=== PATIENT | male | born 1980 | race Caucasian/White ===

== ENCOUNTER 2018-12-10 11:26 | Emergency (ER) | payer BC, OTHER ==
[~2018-12-10] VITALS: Ht 175.3 cm; Wt 100.0 kg
[2018-12-10 11:30] VITALS: BP 148/69; PULSE 68; RESP 20; Ht 175.3 cm; Wt 100.0 kg
--- NOTE | 2018-12-10 12:50 | ERD ---
ER Documentation Chief Complaint Chief Complaint pt is bib self with c/o bilatt swollen eyelids x 2 wks HPI 38yo M presents to ED with complaint of Bilateral eyelid swelling x 2 days with eye redness and watery discharge x 8 days. Pt states to have been working with dust when dust particles got in his eyes 2 weeks ago. Pt began to notice swelling and discharge 8 days ago. Is currently using visine for symptomatic improvement, with no relief in symptoms. Denies blurred or loss of vision. ROS All systems reviewed and are negative except as per history of present illness. Medications Home Meds Active Scripts Cetirizine Hcl* (Cetirizine Hcl*) 5 Mg/5 Ml Solution, 5 ML PO DAILY for allergies, #4 OZ Prov:SHIRA GOMEZ PA-C 12/10/18 Cromolyn Sodium* (Cromolyn Sodium*) 4% - 10 Ml Drops, 1 DROP BOTH EYES QID for allergies, #1 BOTTLE Prov:SHIRA GOMEZ PA-C 12/10/18 Allergies Allergies: Coded Allergies: No Known Allergy (Unverified , 12/10/18) PMhx/Soc Medical and Surgical Hx: pt denies Medical Hx, pt denies Surgical Hx Hx Alcohol Use: No Hx Substance Use: No Hx Tobacco Use: No Smoking Status: Never smoker Physical Exam Vitals Vital Signs Date Temp Pulse Resp B/P (MAP) Pulse Ox O2 O2 Flow FiO2 Time Delivery Rate 12/10/18 97.7 68 20 148/69 98 11:30 (95) Physical Exam Const: No acute distress Head: Atraumatic Eyes: PERRL. EOMI. No visible foreign body with eversion of the eyelids. Visible conjunctival injection with edema of the eyelids but no erythema or warmth. No visible discharge. Scott lamp exam negative for uptake of Fluorescein stain. ENT: Normal External Ears, Nose and Mouth. Neck: Full range of motion. No meningismus. Resp: Clear to auscultation bilaterally Cardio: Regular rate and rhythm, no murmurs Neur: Awake and alert Psych: Normal Mood and Affect Results 24 hrs Current Medications Medications Dose Sig/Antionette Start Time Status Last (Trade) Ordered Route PRN Stop Time Admin Dose Reason Admin Fluorescein 1 strip ONCE ONCE 12/10/18 DC Sodium LEFT EYE 13:00 (Pcwjz-E-Pqee 12/10/18 13:01 p) Fluorescein 1 strip ONCE ONCE 12/10/18 DC Sodium RIGHT EYE 13:00 ([id number]-Mrxi 12/10/18 13:01 p) Tetracaine 1 drop ONCE ONCE 12/10/18 DC HCl BOTH EYES 13:00 (Tetracaine 12/10/18 13:01 0.5% Steri-Unit Luz) Procedures/MDM MDM: Pt presents with injection and c/o discharge from bilat eyes x 8 days. On exam, they have no pain with EOM movement, minor periorbital swelling but no erythema. They deny any changes in vision. Symptoms and PE findings c/w allergic conjunctivitis, provided Rx for Cromolyn Opthalmic drops and Claritin. At this time low suspicion for acute AAC glaucoma, globe injury, corneal abrasion/ulcer, retinal detachment, and foreign body in eye due to unremarkable eye exam. Pt stable for discharge at this time and advised to f/u with PCP in next 1-2 days. ED return precautions discussed. Pt expressed verbal understanding and agreement to treatment plan. All questions addressed and answered. Departure Diagnosis: Primary Impression: Allergic conjunctivitis Laterality: bilateral Qualified Codes: H10.13 - Acute atopic conjunctivitis, bilateral Condition: Stable SHIRA GOMEZ PA-C December 10, 2018 12:50
[2018-12-10] MEDS ORDERED: FLUORESCEIN STRIP LEFT EYE ONE (13:00)
[2018-12-10] MEDS ORDERED: FLUORESCEIN STRIP RIGHT EYE ONE (13:00)
[2018-12-10] MEDS ORDERED: TETRACAINE 0.5% 4 ML OPH BOTH EYES ONE (13:00)
[2018-12-10] MEDS ORDERED: CROM10DR6 BOTH EYES (13:26)
[2018-12-10] MEDS ORDERED: CETI5SOL PO (13:28)
== END 2018-12-10 13:36 | disposition home or self-care (01) ==
LOC: FTE 11:26
DX: H10.13 Acute atopic conjunctivitis, bilateral (principal)
CPT/HCPCS: Z7610 ×2; 99283

== ENCOUNTER 2018-12-12 13:07 | Emergency (ER) | payer BC ==
[~2018-12-12] VITALS: Ht 177.8 cm; Wt 110.0 kg
[~2018-12-12 13:07] MED LIST: CETI5SOL PO; CROM10DR6 BOTH EYES
[2018-12-12 13:18] VITALS: Ht 177.8 cm; Wt 110.0 kg
--- NOTE | 2018-12-12 17:33 | ERD ---
ER Documentation Chief Complaint Chief Complaint palpitations x 3 days HPI The patient is a 38-year-old male, presenting to the ER because of acute palpitation, acute left-sided chest discomfort for the last 3 days, denies any chest pain or palpitation now, has similar symptoms previously, denies fever, chills, neck pain, abdominal pain, vomiting. He does not smoke nor drink Medical/surgical history: None ROS All systems reviewed and are negative except as per history of present illness. Medications Home Meds Discontinued Scripts Cetirizine Hcl* (Cetirizine Hcl*) 5 Mg/5 Ml Solution, 5 ML PO DAILY for allergies, #4 OZ Prov:SHIRA GOMEZ PA-C 12/10/18 Cromolyn Sodium* (Cromolyn Sodium*) 4% - 10 Ml Drops, 1 DROP BOTH EYES QID for allergies, #1 BOTTLE Prov:SHIRA GOMEZ PA-C 12/10/18 Allergies Allergies: Coded Allergies: No Known Allergy (Unverified , 12/12/18) PMhx/Soc Hx Alcohol Use: No Hx Substance Use: No Hx Tobacco Use: No Physical Exam Vitals Vital Signs Date Temp Pulse Resp B/P (MAP) Pulse Ox O2 O2 Flow FiO2 Time Delivery Rate 12/12/18 84 22 143/94 97 Room Air 21:03 (110) 12/12/18 72 19 135/75 99 Room Air 18:24 (95) 12/12/18 Nasal 17:58 Cannula 12/12/18 98.1 67 18 139/81 96 13:18 (100) Physical Exam Const: No acute distress. Head: Atraumatic. Eyes: Normal Conjunctiva. ENT: Normal External Ears, Nose and Mouth. Neck: Full range of motion. No meningismus. Resp: Clear to auscultation bilaterally. Cardio: Regular rate and rhythm. Abd: Soft, non distended, normal bowel sounds, non tender. Skin: No petechiae or rashes. Back: No midline or flank tenderness. Ext: No cyanosis, or edema. Neur: Awake and alert. No focal deficit Psych: Normal Mood and Affect. Result Diagram: 12/12/18 1750 12/12/18 1750 Results 24 hrs Laboratory Tests Test 12/12/18 17:50 White Blood Count 7.7 10^3/ul Red Blood Count 6.17 10^6/ul Hemoglobin 16.1 g/dl Hematocrit 48.4 % Mean Corpuscular Volume 78.4 fl Mean Corpuscular Hemoglobin 26.1 pg Mean Corpuscular Hemoglobin Concent 33.3 g/dl Red Cell Distribution Width 12.0 % Platelet Count 164 10^3/UL Mean Platelet Volume 12.3 fl Immature Granulocytes % 0.500 % Neutrophils % 58.6 % Lymphocytes % 28.8 % Monocytes % 9.6 % Eosinophils % 2.1 % Basophils % 0.4 % Nucleated Red Blood Cells % 0.0 /100WBC Immature Granulocytes # 0.040 10^3/ul Neutrophils # 4.5 10^3/ul Lymphocytes # 2.2 10^3/ul Monocytes # 0.7 10^3/ul Eosinophils # 0.2 10^3/ul Basophils # 0.0 10^3/ul Nucleated Red Blood Cells # 0.0 10^3/ul Sodium Level 140 mmol/L Potassium Level 4.2 mmol/L Chloride Level 105 mmol/L Carbon Dioxide Level 24 mmol/L Anion Gap 11 Blood Urea Nitrogen 10 mg/dl Creatinine 0.55 mg/dl Est Glomerular Filtrat Rate mL/min > 60 mL/min Glucose Level 88 mg/dl Calcium Level 9.5 mg/dl Troponin I < 0.012 ng/ml Procedures/[place] [id number] Radiology Main Line: [phone] DIAGNOSTIC IMAGING REPORT Patient: JONA TAVAREZ : 1980 Age: 38 Sex: M MR #: [id number] DOS: 12/12/18 1740 Ordering MD: ARLETTE MARES MD Location: E/R Room/Bed: PROCEDURE: XR Chest. CLINICAL INDICATION: Chest pain TECHNIQUE: A single AP view of the chest was obtained. COMPARISON: None. FINDINGS: No focal airspace opacification, pleural effusion or pneumothorax is seen. The cardiomediastinal silhouette is within normal limits for size. The osseous structures are unremarkable. IMPRESSION: Unremarkable chest x-ray. RPTAT: HH .Chloe Alberto MD, MD Date Time Electronically viewed and signed by .Chloe Alberto MD, MD on 12/12/2018 18:29 .G/ CC: ARLETTE MARES MD [phone] EKG: Read by emergency physician Rate/Rhythm: Normal Sinus Rhythm 66 beats/min QRS, ST, T-waves: No ST elevation, no T inversion, SA Impression: ABnormal EKG MEDICAL MAKING DECISION: The patient is a 38-year-old male, presenting with palpitation and chest pain, he has no symptoms at this time, is stable for outpatient follow-up The differential diagnoses considered include but are not limited to acute coronary syndrome, acute myocardial infarction, pericarditis, pulmonary embolism, aortic dissection, pneumonia, pleural effusion, pneumothorax, GERD, chest wall pain. Departure Diagnosis: Primary Impression: Palpitations Condition: Good Comments The patient's blood pressure was elevated (>120/80) but appears stable without evidence of hypertension emergency or urgency. The patient was counseled about the risks of hypertension and urged to pursue outpatient monitoring and therapy within a week with their primary care physician. I discussed the findings with the patient. I advised the patient to follow-up with the primary physician in about 2-3 days, sooner if needed and return if any concern. Disclaimer: Inadvertent spelling and grammatical errors are likely due to EHR/di ctation software use and do not reflect on the overall quality of patient care. Also, please note that the electronic time recorded on this note does not necessarily reflect the actual time of the patient encounter. ARLETTE MARES MD December 12, 2018 17:33
[2018-12-12 21:03] VITALS: BP 143/94; PULSE 84; RESP 22
== END 2018-12-12 21:10 | disposition home or self-care (01) ==
LOC: E/R 13:07
DX: R00.2 Palpitations (principal)
CPT/HCPCS: 36415; 71045; 80048; 84484; 85025; 93005; Z7502

== ENCOUNTER 2019-01-10 19:20 | Emergency (ER) | payer BC ==
[~2019-01-10] VITALS: Ht 180.3 cm; Wt 111.4 kg
[2019-01-10 19:30] VITALS: Ht 180.3 cm; Wt 111.4 kg
--- NOTE | 2019-01-10 20:56 | ERD ---
ER Documentation Chief Complaint Chief Complaint BILAT EYE PAIN, DISCHARGE, REDNESS X'S 1 MONTH. SEEN HERE FOR SAME. HPI 38-year-old male, with history of allergic conjunctivitis, presents to the emergency department, complaining of worsening of bilateral eyelid edema, erythema and local pruritus. The patient denies blurred vision, no foreign body sensation, no headache, no ocular discharge. The patient does not wear contact lenses. ROS All systems reviewed and are negative except as per history of present illness. Medications Home Meds Active Scripts Dexamethasone* Ophth (Dexamethasone* Ophth) 0.1%-5 Ml Drops, 1 DROP BOTH EYES Q4 for 7 Days, #1 BOTTLE Prov:ZOYA MUNOZ MD 01/10/19 Polymyxin B Sulfate-TMP* (Polymyxin B-TMP Eye Drops*) 10 Ml Drops, 1 DROP BOTH EYES QID for 7 Days, EA Prov:ZOYA MUNOZ MD 01/10/19 Prednisone* (Prednisone*) 20 Mg Tab, 60 MG PO DAILY for 5 Days, TAB Prov:ZOYA MUNOZ MD 01/10/19 Allergies Allergies: Coded Allergies: No Known Allergy (Unverified , 12/12/18) PMhx/Soc Medical and Surgical Hx: pt denies Medical Hx, pt denies Surgical Hx History of Surgery: No Hx Neurological Disorder: No Hx Respiratory Disorders: No Hx Cardiac Disorders: No Hx Psychiatric Problems: No Hx Miscellaneous Medical Probl: No Hx Alcohol Use: No Hx Substance Use: No Hx Tobacco Use: No Smoking Status: Never smoker FmHx Family History: No diabetes, No coronary disease Physical Exam Vitals Vital Signs Date Temp Pulse Resp B/P (MAP) Pulse Ox O2 O2 Flow FiO2 Time Delivery Rate 01/10/19 98.3 76 22 137/84 98 Room Air 21:36 (101) 01/10/19 99.2 105 20 150/90 96 19:30 (110) Physical Exam Patient alert, oriented, vital signs stable. HEAD: Normocephalic, atraumatic. EYES: Bilateral eye lead erythema with mild edema, PERRLA, EOMI, Sclera and conjunctiva mildly injected, anterior chamber clear. NOSE: Clear and patent nostrils. EARS: Canals clear, tympanic membranes WNL. MOUTH: normal lips and tongue, no oral lesions. THROAT: Normal oropharynx, no tonsillar exudates. NECK: Supple, No lymphadenopathy. Full ROM without pain or tenderness. HEART: RRR, no rubs, murmurs, clicks or gallops. LUNGS: Clear to auscultation. ABDOMEN: Soft, non-tender without masses or hepatosplenomegaly. EXTREMITIES: No edema bilaterally. BACK: Full ROM, no deformity, normal back exam NEURO: Cranial nerves grossly intact, no motor or sensory deficit SKIN: No rashes, no petechia. Procedures/MDM Differential diagnosis include but not limited to: infection bacterial/viral/fungal, iritis, scleritis, corneal abrasion, allergies, foreign body, glaucoma. Physical examination and clinical presentation consistent most likely with acute allergic conjunctivitis. During the ED course the patient remained stable, no new complaints. Clinical impression discussed with patient who agrees with management. The patient is stable to be treated outpatient and will be discharged home; Some side effects of prescribed medications (headache, rash, nausea, vomiting, d iarrhea, interactions with other medications) were reviewed. The patient was instructed to follow up with the primary care provider in the next 48h. If symptoms persist, worsen or new symptoms develop, then patient should return to the ED immediately. Disclaimer: Inadvertent spelling and grammatical errors are likely due to EHR/dictation software use and do not reflect on the overall quality of patient care. Also, please note that the electronic time recorded on this note does not necessarily reflect the actual time of the patient encounter. Departure Diagnosis: Primary Impression: Allergic conjunctivitis Condition: Stable Additional Instructions: Muchas jose por [facility] para grier servicio. Esperamos que en grier visita a la chanelle de emergencia grier problema medico haya sido solucionado y que se sienta mucho mejor. Para estar seguros que grier mejoria sigue en proceso, le pedimos el favor de hacer gomez lola de seguimiento medico con grier doctor primario en los proximos 2-4 connors. Lleve con usted estos documentos y las medicinas recetadas. Si shagufta sintomas empeoran, NO SE ESPERE, por favor regrese a chanelle de emergencia INMEDIATAMENTE. En inge que usted no tenga un mdico de atencin primaria: Llame al mdico o clnica comunitaria de referencia que aparece abajo isadora las horas de consultorio para hacer gomez lola para que le vean. CLINICAS: [facility] [phone] [facility] [phone] [facility] [phone] [facility] [phone] [facility]. [place] [id number] [phone] [facility] [phone] ZOYA RODRIGUEZ MD Jan 10, 2019 20:56
[2019-01-10] MEDS ORDERED: POLY10DR19 BOTH EYES (21:04)
[2019-01-10] MEDS ORDERED: PRED20TA PO (21:04)
[2019-01-10] MEDS ORDERED: DEXA5DRO11 BOTH EYES (21:05)
[2019-01-10 21:36] VITALS: BP 137/84; PULSE 76; RESP 22
== END 2019-01-10 21:37 | disposition home or self-care (01) ==
LOC: FTE 19:20
DX: H10.13 Acute atopic conjunctivitis, bilateral (principal)
CPT/HCPCS: 99283